=== PATIENT | female | born 1980 | race Caucasian/White ===

== ENCOUNTER 2022-07-27 20:57 | Emergency (ER) | payer MEDICAID ==
[~2022-07-27] VITALS: Ht 162.6 cm; Wt 83.0 kg
[2022-07-27 21:37] VITALS: BP_SYST 183
--- NOTE | 2022-07-27 21:41 | NUR ---
Patient triaged and placed in waiting room. VSS and patient appears in no acute distress at this time. Accompanied by self , awaiting available bed, and MD notified of need for MSE.
--- NOTE | 2022-07-27 21:42 | NUR ---
Pt brought by self , A&Ox4, pt presents to ER with headache and high blood pressure, 183/99, skin pink and warm, cap refill <3, VSS, will cont to monitor
--- NOTE | 2022-07-27 23:09 | NUR ---
ER examining patient.
[2022-07-27] MEDS ORDERED: IBUP-1970 PO (23:26)
[2022-07-27] MEDS ORDERED: IBUPROFEN 600 MG TABLET PO ONE (23:30)
[2022-07-27 23:59] VITALS: BP_SYST 163
--- NOTE | 2022-07-27 23:59 | NUR ---
Patient given written and verbal discharge instructions and verbalizes understanding. ER MD discussed with patient the care provided. Patient in stable condition. No Rx given. Patient educated on pain management and to follow up with PMD. Opportunity for questions provided and answered.
== END 2022-07-27 23:59 | disposition home or self-care (01) ==
LOC: SED 20:57
DX: I10 Essential (primary) hypertension (principal); R51.9 Headache, unspecified; Z79.899 Other long term (current) drug therapy
CPT/HCPCS: 81025; 99282